=== PATIENT | female | born 1970 | race Two or more races ===

== ENCOUNTER → 2018-10-19 | Outpatient (CLI) | payer OTHER ==
[~2018-10-19] MED LIST: ATIVAN2 MG PO; CYMBALTA60 MG PO
== END | disposition home or self-care (01) ==
LOC: MAMO-SONO 08:38
DX: N64.0 Fissure and fistula of nipple (principal); Z12.31 Encounter for screening mammogram for malignant neoplasm of breast; N63.10 Unspecified lump in the right breast, unspecified quadrant; N63.20 Unspecified lump in the left breast, unspecified quadrant

== ENCOUNTER 2019-08-13 07:57 | Outpatient (CLI) | payer OTHER | END 2019-08-13 08:20 | disposition home or self-care (01) | LOC: RAD 07:57 | DX: M79.642 Pain in left hand (principal) ==

== ENCOUNTER 2021-05-26 08:27 | Outpatient (CLI) | payer OTHER | END 2021-05-26 08:52 | disposition home or self-care (01) | LOC: MAMO-SONO 08:27 | PROVIDERS: ATTEND Obstetrics & Gynecology Obstetrics | DX: N63.0 Unspecified lump in unspecified breast (principal); N64.0 Fissure and fistula of nipple; Z12.11 Encounter for screening for malignant neoplasm of colon; Z12.31 Encounter for screening mammogram for malignant neoplasm of breast ==

== ENCOUNTER 2022-01-26 09:11 | Emergency (ER) | payer OTHER ==
[~2022-01-26] VITALS: Ht 160 cm; Wt 84.4 kg
[2022-01-26] MEDS ORDERED: ATIVAN2 M1 PO (09:34)
[2022-01-26] MEDS ORDERED: ARMOUR THYROID60 M1 PO (09:35)
[2022-01-26] MEDS ORDERED: NORFLEX100MG PO (13:12)
[2022-01-26] MEDS ORDERED: KETO10TA2 PO (13:12)
== END 2022-01-26 13:20 | disposition home or self-care (01) ==
LOC: ER 09:11
DX: M54.9 Dorsalgia, unspecified (principal); E03.9 Hypothyroidism, unspecified

== ENCOUNTER 2023-07-11 09:22 | Outpatient (CLI) | payer OTHER ==
[~2023-07-11 09:22] MED LIST changes: +ARMOUR THYROID60 M1 PO; +ATIVAN2 M1 PO; +KETO10TA2 PO; +NORFLEX100MG PO
== END 2023-07-11 09:37 | disposition home or self-care (01) ==
LOC: MAMO-SONO 09:22
PROVIDERS: ATTEND Obstetrics & Gynecology Obstetrics
DX: Z12.31 Encounter for screening mammogram for malignant neoplasm of breast (principal); N64.0 Fissure and fistula of nipple; N63.0 Unspecified lump in unspecified breast